=== PATIENT | female | born 1995 | race Caucasian/White ===

== ENCOUNTER 2017-12-06 22:02 | Emergency (ER) | payer BC, MEDICARE ==
[2017-12-06 22:08] VITALS: BP 119/87; PULSE 109; RESP 14; TEMP 98.4; O2SAT 96
[2017-12-06] MEDS ORDERED: GABA250S PO (22:21)
[2017-12-06] MEDS ORDERED: TRAV0.00 EACH EYE (22:21)
[2017-12-06] MEDS ORDERED: NORE1TAB4 PO (22:21)
[2017-12-06] MEDS ORDERED: AZOP1SUS EACH EYE (22:21)
[2017-12-06] MEDS ORDERED: LEVO100T5 PO (22:21)
[2017-12-06] MEDS ORDERED: OXCA300S5 PO (22:21)
[2017-12-06] MEDS ORDERED: COMB0.2S EACH EYE (22:21)
[2017-12-06] MEDS ORDERED: FLUO20SO PO (22:21)
[2017-12-06] MEDS ORDERED: AZIT250T3 PO (22:30)
--- NOTE | 2017-12-06 22:30 | PD ---
HPI Chief Complaint: ENT Complaint Time Seen by Provider: 22:26 Travel History International Travel<30 days: No Contact w/Intl Traveler<30days: No Traveled to known affect area: No History of Present Illness HPI This is a developmentally delayed 22-year-old female brought in by her parents for evaluation of fever, sore throat 4 days. They are here visiting from [place] and unable to follow-up child's doctor. They are concerned she has strep pharyngitis. She had similar symptoms in the past. He reports she is eating and drinking without difficulty. MAXIMUM TEMPERATURE of 101.6. Symptom severity is mild to moderate. No aggravating factors. PFSH Past Medical History Medical other: Yes (AUTISM AND MR) Immunizations Current: Yes ?: Not Past Surgical History Eye Surgery: Yes Social History Alcohol Use: No Tobacco Use: No Substance Use: No Allergies-Medications (Allergen,Severity, Reaction): Coded Allergies: ampicillin (Verified Allergy, Severe, Anaphylaxis, 12/06/17) cefprozil (Verified Allergy, Intermediate, Hives, 12/06/17) Reported Meds & Prescriptions Reported Meds & Active Scripts Active Azithromycin 250 Mg Tab 250 Mg PO DIRECTED Take 2 tabs (500 mg) on day 1 then 1 tab daily x 4 days. Reported Travatan Z Opth Drops (Travoprost) 0.004 % Soln 1 Drop EACH EYE HS Azopt Opth Drops (Brinzolamide) 1% Susp 1 Drop EACH EYE TID Combigan Opth Drops (Brimonidine-Timolol Opth Drops) 0.2-0.5% Soln 1 Drop EACH EYE Q12HR Dasetta (Norethindrone-Ethinyl Estradiol) 1-35 Mg-Mcg Tab 1 Tab PO DAILY Levothyroxine (Levothyroxine Sodium) 100 Mcg Tab 100 Mcg PO DAILY Neurontin Liq (Gabapentin) 250 Mg/5 Ml Soln 500 Mg PO TID Fluoxetine Liq (Fluoxetine HCl) 20 mg/5 ML Soln 10 Mg PO TID Oxcarbazepine Liq (Oxcarbazepine) 300 Mg/5 Ml Susp 300 Mg PO BID Review of Systems Except as stated in HPI: all other systems reviewed are Neg General / Constitutional: Positive: Fever HENT: Positive: Sore Throat Respiratory: Positive: Cough Gastrointestinal: No: Abdominal Pain Genitourinary: No: Dysuria Physical Exam Narrative GENERAL: Alert and well-appearing SKIN: Warm and dry. No rash HEAD: Normocephalic. EYES: No injection or drainage. Ears/nose/throat: Pharyngeal erythema with mild tonsillar hypertrophy and scant exudate. Uvula is midline. Airway is patent. Normal phonation. NECK: Supple, trachea midline. Mild cervical lymphadenopathy. No meningismus CARDIOVASCULAR: Regular rate and rhythm RESPIRATORY: Breath sounds equal bilaterally. No accessory muscle use. GASTROINTESTINAL: Abdomen soft, non-tender, nondistended. MUSCULOSKELETAL: No cyanosis, or edema. BACK: No CVA tenderness. Data Data Last Documented VS Vital Signs Date Time Temp Pulse Resp B/P (MAP) Pulse Ox O2 Delivery O2 Flow Rate FiO2 12/06/17 22:08 98.4 109 14 119/87 (98) 96 MDM Medical Decision Making Medical Screen Exam Complete: Yes Emergency Medical Condition: Yes Differential Diagnosis Strep Pharyngitis, bronchitis, pneumonia Narrative Course Follow mentally delayed 22-year-old female here with sore throat and fever 4 days. She is nontoxic appearing. Her vital signs are stable. She'll be treated for pharyngitis Diagnosis Primary Impression: Pharyngitis Qualified Codes: J02.9 - Acute pharyngitis, unspecified Referrals: Primary Care Physician Additional Instructions: Antibiotics as directed. Tylenol or ibuprofen for fever. Drink plenty of fluids and rest. Scripts Azithromycin (Azithromycin) 250 Mg Tab 250 MG PO DIRECTED for Infection, #6 TAB 0 Refills Take 2 tabs (500 mg) on day 1 then 1 tab daily x 4 days. Prov: Stacia Bryant 12/06/17 Disposition: 01 DISCHARGE HOME Condition: Stable Stacia Bryant Dec 06, 2017 22:30
== END 2017-12-06 22:35 | disposition home or self-care (01) ==
LOC: PHEFT 22:02
DX: J02.9 Acute pharyngitis, unspecified (principal); F84.0 Autistic disorder
CPT/HCPCS: 99283